=== PATIENT | female | born 1945 | race Caucasian/White ===

== ENCOUNTER 2020-08-26 08:31 | Day surgery (SDC) | payer MEDICARE, MEDICAID, SELFPAY ==
[2020-08-20 09:42] VITALS: BMI 27.2
--- NOTE | 2020-08-21 12:00 | CONS_ITS ---
DATE OF SERVICE: 08/26/2020 HISTORY OF PRESENT ILLNESS: The patient is a 75-year-old [employer] who was scheduled for cataract surgery by Dr. Dejesus. REVIEW OF SYSTEMS: HEENT: She has had no headaches. No problem with her vision or hearing. No sore throat or sinus trouble. She does have the cataract that is why she is having the surgery. CARDIORESPIRATORY: No chest pain, cough, or shortness of breath. GI: No nausea or vomiting. No diarrhea or constipation. No heartburn. : No dysuria. She has rare nocturia. BONE AND JOINT: She has some scattered arthralgias. ENDOCRINE: No diabetes or thyroid problems. DERMATOLOGIC: No rashes. NEUROLOGIC: No history of syncope or seizures. She has a history of hypertension treated with losartan 25 mg daily, history of depression treated with Celexa 10 mg daily, and history of dyslipidemia treated with simvastatin 20 mg daily, and history of iron-deficiency anemia treated with ferrous sulfate 325 daily. SOCIAL HISTORY: She is a [employer] and has retired. 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 She does not smoke or drink. She drinks 3 cups of coffee a day. Mother at 94. Father at 92. She has 1 sister, alive and well. PHYSICAL EXAMINATION: VITAL SIGNS: Her blood pressure was 132/68. HEENT: Her pupils were equal and reactive. Throat was normal. Ears, normal. NECK: Supple without nodes. LUNGS: Clear. HEART: Regular. No murmurs. BREASTS: Without masses in March, not examined this time. ABDOMEN: Soft and nontender. Bowel sounds are active. EXTREMITIES: Without cyanosis or edema. SKIN: Without rash. RECTAL: Done in March showed no masses and stool is negative for blood. NEUROLOGIC: Normal. LABORATORY DATA: Labs are fairly normal except for creatinine of 1.01 and BUN of 13. The only thing is she just needs to avoid NSAIDs. Her labs studies done in the June showed normal electrolytes. BUN 13, creatinine 1.01, and calcium 9.1. White count 8800, hemoglobin 12.2, hematocrit 37.6, and platelets 318,000. Cardiogram done in March was sinus rhythm with minor nonspecific ST-T, cholesterol is 161, and LDL 90 in March. Liver functions were normal. Electrolytes were normal. Urinalysis was normal. The patient is medially cleared for cataract surgery by Dr. Dejesus as scheduled. MD NIR Caicedo/SHANDA / [phone]
--- NOTE | 2020-08-22 11:38 | MHC.SHP ---
Pre-Procedural Eval Section A The patient is an INPATIENT: No The History & Physical has been completed within 30 days and I have reviewed it.: Yes Section B Chief Complaint: Cataract Right Eye Allergies: Allergies Allergy/AdvReac Type Severity Reaction Status Date / Time sulindac [From CLINORIL] Allergy Intermediate Hives Verified 08/20/20 09:39 cephalexin [From KEFLEX] AdvReac Intermediate HIVES Verified 08/20/20 09:39 clindamycin [CLINDAMYCIN] AdvReac Intermediate Hives Verified 08/20/20 09:39 Plan Diagnosis/Plan: Unchanged Patient has been examined and remains a candidate for the planned procedure
--- NOTE | 2020-08-23 14:02 | HO.ANESPROP2 ---
Documented by User: Shira Smyth 08/23/20 14:03 HPI - Anesthesia Eval Consult details Narrative: 75yo F for cataract PCP cleared [facility] Past Medical History Medical History Anxiety Elevated cholesterol HTN (hypertension) HX: breast cancer Surgical History Surgical History Hx of colonoscopy Hx of total hip arthroplasty Hx of total knee arthroplasty Social History Social History Smoking Status: Never smoker Use of substances other than those prescribed or required for medical reasons: No Advance Directives: No Advance Directives Information Provided: No Advance Directives on File: No Meds Allergies Allergy/AdvReac Type Severity Reaction Status Date / Time sulindac [From CLINORIL] Allergy Intermediate Hives Verified 08/20/20 09:39 cephalexin [From KEFLEX] AdvReac Intermediate HIVES Verified 08/20/20 09:39 clindamycin [CLINDAMYCIN] AdvReac Intermediate Hives Verified 08/20/20 09:39 Home Medications Medication Instructions Recorded Confirmed Type citalopram 1 tab PO DAILY 08/20/20 08/20/20 History ferrous sulfate 1 tab PO DAILY 08/20/20 08/20/20 History losartan 1 tab PO DAILY 08/20/20 08/20/20 History multivitamin 1 tab PO DAILY 08/20/20 08/20/20 History simvastatin 1 tab PO DAILY 08/20/20 08/20/20 History Exam Exam Date and Time: August 23, 2020 1402 Height,Weight and Vital Signs: Height 5 ft 6 in Weight 76.657 kg Pertinent Lab Results Pertinent Lab Results: Laboratory Tests 04/01/20 04/01/20 07:34 07:34 Hgb 12.1 Hct 37.7 Plt Count 289 Sodium 139 Potassium 4.2 Chloride 99 BUN 16 Creatinine 1.02 Assessment and Plan Assessment Anesthesia Assessment: Chart Reviewed Documented by User: Radha Wang 08/26/20 09:41 PMF Past Medical History Medical History Anxiety Elevated cholesterol HTN (hypertension) HX: breast cancer Surgical History Surgical History Hx of colonoscopy Hx of total hip arthroplasty Hx of total knee arthroplasty Social History Social History Smoking Status: Never smoker Use of substances other than those prescribed or required for medical reasons: No Advance Directives: No Advance Directives Information Provided: No Advance Directives on File: No Meds Allergies Allergy/AdvReac Type Severity Reaction Status Date / Time sulindac [From CLINORIL] Allergy Intermediate Hives Verified 08/20/20 09:39 cephalexin [From KEFLEX] AdvReac Intermediate HIVES Verified 08/20/20 09:39 clindamycin [CLINDAMYCIN] AdvReac Intermediate Hives Verified 08/20/20 09:39 Home Medications Medication Instructions Recorded Confirmed Type citalopram 1 tab PO DAILY 08/20/20 08/20/20 History ferrous sulfate 1 tab PO DAILY 08/20/20 08/20/20 History losartan 1 tab PO DAILY 08/20/20 08/20/20 History multivitamin 1 tab PO DAILY 08/20/20 08/20/20 History simvastatin 1 tab PO DAILY 08/20/20 08/20/20 History Exam Airway Mallampati Class: II (Caps) TM Dist: >3cm Neck ROM: Full Heart: RRR Lungs: CTA BL Assessment and Plan Final Anesthetic Review NPO: Yes (Sip water with medicine) ASA Class: II Final Preanesthetic Review: No Changes in Pt Med Stat and Anes Risks/Benef Reviewed Patient Risk: Low Procedure Risk: Low Anesthetic Plan Anesthetic Plan: MAC: Disposition: Standard PACU
[2020-08-26] MEDS: Tetracaine HCl/PF 0.5% Oph Sol 4 ML DROPS 1 DROP EYE-RIGHT (09:46)
[2020-08-26] MEDS: Tropicamide 1 % Ophth Sol 3 ML BTL 1 DROP EYE-RIGHT ×2 (09:48→09:53)
[2020-08-26 10:08] VITALS: BP 143/65; PULSE 89; RESP 18; TEMP 36.3; O2SAT 100
--- NOTE | 2020-08-26 10:43 | HO.PNOPHT ---
Ophthalmology Procedure Procedure Ophthalmology Viscoelastic: Tianna Hudsont Dual Pack Pro Ophthalmology Lenses: TECNIS [id number] (20.5) Procedure Notes: PREOPERATIVE DIAGNOSIS: Decreased visual acuity right eye secondary to cataract POSTOPERATIVE DIAGNOSIS: Same PROCEDURE: Right cataract extraction with intraocular lens insertion SURGEON: William Dejesus M.D. ANESTHESIA: Topical/MAC ESTIMATED BLOOD LOSS: None COMPLICATIONS: None After obtaining informed consent, the patient was brought to the operating room suite and placed in the supine position. After adequate sedation per anesthesia, topical drops of Tetracaine were given to the right eye. The eye was then prepped and draped in the usual sterile fashion. The operating room microscope was then positioned over the operative eye and a lid speculum placed. A paracentesis was created. Viscoelastic was then instilled into the anterior chamber. A three plane incision was then created temporally, utilizing a 2.85 mm keratome. Capsulotomy forceps were then utilized to create a circular tear capsulotomy. Hydrodissection and hydrodelineation were carried out until adequate mobilization of the nucleus occurred. Phacoemulsification was then utilized to remove the dense central nucleus followed by removal of the cortical material utilizing the automated aspiration irrigation unit. Viscoelastic was instilled into the posterior capsular bag followed by placement of a posterior chamber intraocular lens without difficulty. The residual Viscoelastic was then removed utilizing the automated IA machine. The wound was checked and found to be watertight. The patient tolerated the procedure well and the lid speculum was removed. Intracameral injection of Vigamox 0.1 mL followed by a subtenon injection of Kenalog-40 0.2 mL were administered. The patient will be seen in the a.m.
[2020-08-26 10:45] VITALS: PULSE 75; TEMP 36.3
[2020-08-26 10:46] VITALS: BP 115/53; PULSE 79; RESP 16; TEMP 36.3; O2SAT 98
== END 2020-08-26 23:59 | disposition home or self-care (01) ==
PROVIDERS: PCP Internal Medicine; Visit Provider Ophthalmology
PROC: (CPT 66985; principal; 2020-08-26 10:50)
DX: H25.11 Age-related nuclear cataract, right eye (principal); H52.4 Presbyopia; Z83.511 Family history of glaucoma; H40.013 Open angle with borderline findings, low risk, bilateral; I10 Essential (primary) hypertension; Z85.3 Personal history of malignant neoplasm of breast; Z79.899 Other long term (current) drug therapy; Z96.641 Presence of right artificial hip joint; Z96.651 Presence of right artificial knee joint; Z88.1 Allergy status to other antibiotic agents
CPT/HCPCS: 66984; J2250; J3010; J3300; V2632

== ENCOUNTER 2020-09-09 07:39 | Day surgery (SDC) | payer MEDICARE, MEDICAID, SELFPAY ==
--- NOTE | 2020-09-04 07:54 | MHC.SHP ---
Pre-Procedural Eval Section A The patient is an INPATIENT: No The History & Physical has been completed within 30 days and I have reviewed it.: Yes Section B Chief Complaint: cataracts left eye Allergies: Allergies Allergy/AdvReac Type Severity Reaction Status Date / Time sulindac [From CLINORIL] Allergy Intermediate Hives Verified 08/20/20 09:39 cephalexin [From KEFLEX] AdvReac Intermediate HIVES Verified 08/20/20 09:39 clindamycin [CLINDAMYCIN] AdvReac Intermediate Hives Verified 08/20/20 09:39 Plan Diagnosis/Plan: Unchanged Patient has been examined and remains a candidate for the planned procedure
[2020-09-04 10:21] VITALS: BMI 27.2
[2020-09-09 08:28] VITALS: BP 136/65; PULSE 81; RESP 16; TEMP 36.8; O2SAT 98
[2020-09-09] MEDS: Lactated Ringers 500 ML 50 ML IV (08:34)
[2020-09-09] MEDS: Tetracaine HCl/PF 0.5% Oph Sol 4 ML DROPS 1 DROP EYE-LEFT (08:35)
[2020-09-09] MEDS: Tropicamide 1 % Ophth Sol 3 ML BTL 1 DROP EYE-LEFT ×3 (08:36→08:44)
--- NOTE | 2020-09-09 08:48 | HO.ANESPROP2 ---
[facility] Past Medical History Medical History Anxiety Elevated cholesterol HTN (hypertension) HX: breast cancer Surgical History Surgical History Hx of colonoscopy Hx of right cataract extraction Hx of total hip arthroplasty Hx of total knee arthroplasty Social History Social History Smoking Status: Never smoker Use of substances other than those prescribed or required for medical reasons: No Advance Directives: No Advance Directives Information Provided: No Advance Directives on File: No Meds Allergies Allergy/AdvReac Type Severity Reaction Status Date / Time sulindac [From CLINORIL] Allergy Intermediate Hives Verified 08/20/20 09:39 cephalexin [From KEFLEX] AdvReac Intermediate HIVES Verified 08/20/20 09:39 clindamycin [CLINDAMYCIN] AdvReac Intermediate Hives Verified 08/20/20 09:39 Home Medications Medication Instructions Recorded Confirmed Type citalopram 1 tab PO DAILY 08/20/20 08/26/20 History ferrous sulfate 1 tab PO DAILY 08/20/20 08/20/20 History losartan 1 tab PO DAILY 08/20/20 08/20/20 History multivitamin 1 tab PO DAILY 08/20/20 08/20/20 History simvastatin 1 tab PO DAILY 08/20/20 08/20/20 History Exam Exam Date and Time: September 09, 2020 0848 Height,Weight and Vital Signs: Height 5 ft 6 in Weight 76.65 kg Last Vital Signs Temp 98.3 F 09/09/20 08:28 Pulse 81 09/09/20 08:28 Resp 16 09/09/20 08:28 BP 136/65 09/09/20 08:28 Pulse Ox 98 09/09/20 08:28 Airway Mallampati Class: II TM Dist: >3cm Neck ROM: Full Loose/Missing/Broken Teeth: No Heart: RRR Lungs: CTA Assessment and Plan Assessment Anesthesia Assessment: Anesthesia Plan Discussed and Chart Reviewed Final Anesthetic Review NPO: Yes ASA Class: II Final Preanesthetic Review: No Changes in Pt Med Stat, Meds/Allgs Chart Reviewed, Consent Obtained/Reviewed and Anes Risks/Benef Reviewed Patient Risk: Low Procedure Risk: Low Anesthetic Plan Anesthetic Plan: MAC: Disposition: Standard PACU
--- NOTE | 2020-09-09 10:16 | HO.PNOPHT ---
Ophthalmology Procedure Procedure Date of Service: 09/09/20 Ophthalmology Viscoelastic: Healon Duet Dual Pack Pro Ophthalmology Lenses: TECNIS [id number] (21.5) Procedure Notes: PREOPERATIVE DIAGNOSIS: Decreased visual acuity left eye secondary to cataract POSTOPERATIVE DIAGNOSIS: Same PROCEDURE: Left cataract extraction with intraocular lens insertion SURGEON: William Dejesus M.D. ANESTHESIA: Topical/MAC ESTIMATED BLOOD LOSS: None COMPLICATIONS: None After obtaining informed consent, the patient was brought to the operation room suite and placed in the supine position. After adequate sedation per anesthesia, topical drops of Tetracaine were given to the left eye. The eye was then prepped and draped in the usual sterile fashion. The operating room microscope was then positioned over the operative eye and a lid speculum placed. A paracentesis was created. Viscoelastic was then instilled into the anterior chamber. A three plane incision was then created temporally, utilizing a 2.85 mm keratome. Capsulotomy forceps were then utilized to create a circular tear capsulotomy. Hydrodissection and hydrodelineation were carried out until adequate mobilization of the nucleus occurred. Phacoemulsification was then utilized to remove the dense central nucleus followed by removal of the cortical material utilizing the automated aspiration irrigation unit. Viscoat elastic was instilled into the posterior capsular bag followed by placement of a posterior chamber intraocular lens without difficulty. The residual Viscoat elastic was then removed utilizing the automated IA machine. The wound was check and found to be watertight. The patient tolerated the procedure well and the lid speculum was removed. Intracameral injection of Vigamox 0.1 mL followed by a subtenon injection of Kenalog-40 0.2 mL were administered. The patient will be seen in the a.m.
[2020-09-09 10:17] VITALS: BP 128/60; PULSE 85; RESP 15; TEMP 36.8; O2SAT 97
== END 2020-09-09 10:30 | disposition home or self-care (01) ==
PROVIDERS: PCP Internal Medicine; Visit Provider Ophthalmology
PROC: (CPT 66985; principal; 2020-09-09 10:00)
DX: H25.12 Age-related nuclear cataract, left eye (principal); Z83.511 Family history of glaucoma; Z96.1 Presence of intraocular lens; I10 Essential (primary) hypertension; Z79.899 Other long term (current) drug therapy; Z85.3 Personal history of malignant neoplasm of breast; Z88.1 Allergy status to other antibiotic agents; Z88.8 Allergy status to other drugs, medicaments and biological substances
CPT/HCPCS: 66984; J2250; J3010; J3300; V2632

== ENCOUNTER 2020-09-26 09:14 | Outpatient (REF) | payer MEDICARE, MEDICAID, SELFPAY ==
[2020-09-26 12:14] LABS: Blood Urea Nitrogen 14 mg/dL (9-16); Estimated Glomerular Filt Rate 60
== END 2020-09-26 09:15 | disposition home or self-care (01) ==
LOC: HO.HMGCLDS 09:14
PROVIDERS: PCP Internal Medicine; Visit Provider Internal Medicine
DX: R53.83 Other fatigue (principal)
CPT/HCPCS: 82565; 84520

== ENCOUNTER 2020-12-25 09:06 | Outpatient (REF) | payer MEDICARE, MEDICAID, SELFPAY ==
[2020-12-25 12:00] LABS: Blood Urea Nitrogen 10 mg/dL (9-16); Estimated Glomerular Filt Rate 56
== END 2020-12-25 09:07 | disposition home or self-care (01) ==
LOC: HO.HMGCLDS 09:06
PROVIDERS: PCP Internal Medicine; Visit Provider Internal Medicine
DX: N18.30 Chronic kidney disease, stage 3 unspecified (principal)
CPT/HCPCS: 36415; 82565; 84520

== ENCOUNTER 2021-04-09 06:01 | Outpatient (REF) | payer MEDICARE, MEDICAID, SELFPAY ==
[2021-04-09 11:23] LABS: MANUAL DIFF FLAG NO
[2021-04-09 11:32] LABS: Basophils Absolute Auto 0.1 X10*3/uL (0.0-0.2); Basophils Percent Auto 0.8 % (0-2); Eosinophils Absolute Auto 0.2 X10*3/uL (0.0-0.4); Eosinophils Percent Auto 3.1 % (0-4); Hematocrit 38.2 % (37-47); Hemoglobin 12.2 g/dl (12.0-16.0); Imm Gran Abs Auto 0.03 X10*3/uL (0.00-0.03); Imm Gran Pct Auto 0.5 % (0.0-0.4); Lymphocytes Absolute Auto 1.8 X10*3/uL (1.2-4.9); Lymphocytes Percent Auto 30.3 % (20-40); Mean Corpuscular HGB Conc 31.9 g/dl (31.0-35.0); Mean Corpuscular Hemoglobin 29.3 pg (27.0-33.0); Mean Corpuscular Volume 91.6 fL (80-98); Mean Platelet Volume 9.2 fL (9.4-12.3); Monocytes Absolute Auto 0.6 X10*3/uL (0.1-1.2); Monocytes Percent Auto 9.9 % (2-11); Neutrophils Absolute Auto 3.4 X10*3/uL (2.0-8.3); Neutrophils Percent Auto 55.4 % (45-73); Platelet Count 312 X10*3/uL (160-400); Red Blood Count 4.17 X10*6/uL (4.20-5.50); Red Cell Distribution Width 12.6 % (11.0-16.0); White Blood Count 6.1 X10*3/uL (4.8-10.8)
[2021-04-09 11:49] LABS: Alanine Aminotransferase 12 U/L (0-31); Alkaline Phosphatase 70 U/L (39-117); Anion Gap 13 (12-20); Aspartate Amino Transferase 21 U/L (5-31); Bilirubin Total 0.6 mg/dL (0.0-1.0); Blood Urea Nitrogen 13 mg/dL (9-16); Calcium 9.1 mg/dL (8.4-10.2); Carbon Dioxide 28 mmol/L (22-29); Chloride 101 mmol/L (96-108); Cholesterol 164 mg/dL; Estimated Glomerular Filt Rate 59; Glucose Fasting 85 mg/dL (60-99); HDL Cholesterol 62 mg/dL; Iron 88 mcg/dL (30-160); LDL Cholesterol Calculated 91 mg/dl; Percent Iron Saturation 40 % (15-50); Potassium 4.4 mmol/L (3.3-5.1); Sodium 138 mmol/L (135-145); Total Iron Binding Capacity 222 mcg/dL (228-428); Total Protein 6.7 g/dL (6.5-8.0); Triglycerides 56 mg/dL; Unsaturated Iron Binding 134 ug/dL
[2021-04-09 12:14] LABS: Ferritin 376 ng/mL (10-250); Free T4 (Free Thyroxine) 0.99 ng/dL (0.71-1.85); Thyroid Stimulating Hormone 2.16 uIU/mL (0.32-4.0)
== END 2021-04-09 06:02 | disposition home or self-care (01) ==
LOC: HO.HMGCLDS 06:01
PROVIDERS: PCP Internal Medicine; Visit Provider Internal Medicine
DX: D64.9 Anemia, unspecified (principal); E78.5 Hyperlipidemia, unspecified; R53.83 Other fatigue
CPT/HCPCS: 36415; 80053; 80061; 82728; 83540; 84439; 84443; 85025

== ENCOUNTER 2021-05-14 08:15 | Outpatient (REF) | payer MEDICARE, MEDICAID, SELFPAY ==
--- NOTE | ~2021-05-14 | MM_ITS ---
EXAMINATION: MM SCREENING DIGITAL BREAST TOMOSYNTHESIS, BILATERAL CLINICAL INFORMATION: Screening. Asymptomatic. Right lumpectomy for breast cancer, 2014. Due for yearly. COMPARISON: Mammography: 05/09/2020, 01/03/2019, 12/27/2017 TECHNIQUE: Digital breast tomosynthesis is performed in both the craniocaudal and mediolateral oblique views along with computer-aided detection (CAD). Synthesized 2D images are generated from the tomosynthesis. FINDINGS: There are scattered areas of fibroglandular density (ACR BI-RADS breast composition Category b). There are no significant masses, abnormal calcifications, or other abnormalities. Right breast post therapy changes are again seen with mild reduced breast size and stable scarring. There are some ductal secretory calcifications again noted, greater on left. The axilla and skin contours are unremarkable. MM/MM tomosynthesis screening BI IMPRESSION: No mammographic evidence of malignancy. Post therapy changes right breast. ASSESSMENT: BI-RADS 2: Benign RECOMMENDATION: Routine annual mammography screening. This patient's information was entered into a reminder system with a target due date for their next mammogram.
== END 2021-05-14 08:16 | disposition home or self-care (01) ==
LOC: HO.MAMMO 08:15
PROVIDERS: Visit Provider Internal Medicine
DX: Z12.31 Encounter for screening mammogram for malignant neoplasm of breast (principal)
CPT/HCPCS: 77063; 77067

== ENCOUNTER 2021-06-06 14:14 | Outpatient (REF) | payer MEDICARE, MEDICAID, SELFPAY ==
--- NOTE | ~2021-06-06 | MM_ITS ---
EXAMINATION: BONE DENSITOMETRY CLINICAL INDICATION: Postmenopausal. COMPARISON: Previous BD dated 03/15/2018 and baseline BD dated 03/08/2014. TECHNIQUE: Using a [employer] DXA System (software version: 13.1) manufactured by [employer], dual-energy x-ray absorptiometry was performed of the lumbar spine and left hip. The images are of good technical quality. Summary results are attached. FINDINGS: AP SPINE L1-L4: Current: BMD 1.221 g/cm2, Z-score 1.8, T-score 0.3, normal, 3.7% decrease from previous, 1.2% increase from baseline (<5% change is not significant). Prior: BMD 1.268 g/cm2. Baseline: BMD 1.206 g/cm2. LEFT FEMUR, NECK: Current: BMD 0.767 g/cm2, Z-score -0.1, T-score -2.0, osteopenia. Prior: BMD 0.882 g/cm2. Baseline: BMD 0.894 g/cm2. LEFT FEMUR, TOTAL: Current: BMD 0.840 g/cm2, Z-score 0.3, T-score -1.3, osteopenia, 6.3% decrease from previous, 8.8% decrease from baseline (<5% change is not significant). Prior: BMD 0.896 g/cm2. Baseline: BMD 0.921 g/cm2. IDENTIFIED RISK FACTORS: Menopause. HISTORY OF FRACTURE: None listed. MEDICATIONS: Multivitamin. MM/XR DEXA axial skeleton IMPRESSION: 1. DIAGNOSIS: Osteopenia based on the lowest T-score value of -2.0 in the femoral neck applying World Health Organization criteria. 2. 10-YEAR FRACTURE RISK PREDICTION, FRAX: Major osteoporotic fracture (clinical spine, forearm, hip or shoulder) 14.5%. Hip fracture 4.0%. 3. Treatment Recommendations: NOF guidelines recommend consideration for treatment in postmenopausal women and men age 50 and older presenting with the following: -A hip or vertebral (clinical or morphometric) fracture. -T-score less than or equal to -2.5 at the femoral neck or spine after appropriate evaluation to exclude secondary causes. -Low bone mass at the hip or spine and a 10-year fracture probability by FRAX of greater than or equal to 3% for hip fracture or greater than or equal to 20% for major osteoporotic fracture based on the [place] adapted WHO algorithm. 4. Other Recommendations: All treatment decisions require clinical judgment and consideration of individual patient factors, including patient preferences, comorbidities, previous drug use, risk factors not captured in the FRAX model (e.g. frailty, falls, vitamin D deficiency, increased bone turnover, interval significant decline in bone density) and possible under or overestimation of fracture risk by FRAX. Additional medical evaluation for secondary cause of low bone mineral density may be appropriate. FUTURE SCAN RECOMMENDATION: People with diagnosed cases of osteoporosis or at high risk for fracture should have regular bone mineral density tests. For patients eligible for Medicare, routine testing is allowed once every 2 years. The testing frequency can be increased to one year for patients who have rapidly progressing disease, those who are receiving or discontinuing medical therapy to restore bone mass, or have additional risk factors.
== END 2021-06-06 14:15 | disposition home or self-care (01) ==
LOC: HO.MAMMO 14:14
PROVIDERS: PCP Internal Medicine; Visit Provider Internal Medicine
DX: Z78.0 Asymptomatic menopausal state (principal)
CPT/HCPCS: 77080

== ENCOUNTER 2021-10-14 08:18 | Outpatient (REF) | payer MEDICARE, MEDICAID, SELFPAY ==
[2021-10-14 12:04] LABS: Blood Urea Nitrogen 14 mg/dL (9-16); Estimated Glomerular Filt Rate 58
== END 2021-10-14 08:19 | disposition home or self-care (01) ==
LOC: HO.HMGCLDS 08:18
PROVIDERS: PCP Internal Medicine; Visit Provider Internal Medicine
DX: R53.83 Other fatigue (principal)
CPT/HCPCS: 36415; 82565; 84520

== ENCOUNTER → 2022-01-13 08:01 | Outpatient (BNV) | payer MEDICARE, MEDICAID, SELFPAY | PROVIDERS: PCP Internal Medicine; Visit Provider Internal Medicine Medical Oncology | DX: Z85.3 Personal history of malignant neoplasm of breast (principal); M85.80 Other specified disorders of bone density and structure, unspecified site | CPT/HCPCS: 99212; 99213 ==

== ENCOUNTER 2022-03-31 07:55 | Outpatient (REF) | payer MEDICARE, MEDICAID, SELFPAY ==
[2022-03-31 11:35] LABS: MANUAL DIFF FLAG NO
[2022-03-31 11:39] LABS: Basophils Absolute Auto 0.1 X10*3/uL (0.0-0.2); Eosinophils Absolute Auto 0.2 X10*3/uL (0.0-0.4); Eosinophils Percent Auto 2.6 % (0-4); Hematocrit 34.7 % (37.0-47.0); Hemoglobin 11.5 g/dl (12.0-16.0); Imm Gran Abs Auto 0.02 X10*3/uL (0.00-0.03); Imm Gran Pct Auto 0.3 % (0.0-0.4); Lymphocytes Absolute Auto 1.8 X10*3/uL (1.2-4.9); Lymphocytes Percent Auto 29.7 % (20-40); Mean Corpuscular HGB Conc 33.1 g/dl (31.0-35.0); Mean Corpuscular Hemoglobin 29.9 pg (27.0-33.0); Mean Corpuscular Volume 90.4 fL (80.0-98.0); Mean Platelet Volume 9.4 fL (9.4-12.3); Monocytes Absolute Auto 0.6 X10*3/uL (0.1-1.2); Monocytes Percent Auto 10.1 % (2-11); Neutrophils Absolute Auto 3.4 x10*3/uL (2.0-8.3); Neutrophils Percent Auto 56.3 % (45-73); Platelet Count 296 X10*3/uL (160-400); Red Blood Count 3.84 X10*6/uL (4.20-5.50); Red Cell Distribution Width 12.7 % (11.0-16.0); White Blood Count 6.1 X10*3/uL (4.8-10.8)
[2022-03-31 11:57] LABS: Alanine Aminotransferase 10 U/L (0-31); Albumin Level 3.8 g/dL (3.5-5.0); Alkaline Phosphatase 67 U/L (39-117); Anion Gap 13 (12-20); Aspartate Amino Transferase 15 U/L (5-31); Bilirubin Direct 0.2 mg/dL (0.0-0.5); Bilirubin Total 0.5 mg/dL (0.0-1.0); Blood Urea Nitrogen 11 mg/dL (9-16); Carbon Dioxide 25 mmol/L (22-29); Chloride 101 mmol/L (96-108); Cholesterol 150 mg/dL; Estimated Glomerular Filt Rate > 60; Glucose Fasting 83 mg/dL (60-99); HDL Cholesterol 54 mg/dL; Iron 72 mcg/dL (30-160); LDL Cholesterol Calculated 83 mg/dl; Percent Iron Saturation 33 % (15-50); Potassium 4.2 mmol/L (3.3-5.1); Sodium 135 mmol/L (135-145); Total Iron Binding Capacity 221 mcg/dL (228-428); Total Protein 6.7 g/dL (6.5-8.0); Triglycerides 66 mg/dL; Unsaturated Iron Binding 149 ug/dL
[2022-03-31 12:20] LABS: Ferritin 351 ng/mL (10-250)
== END 2022-03-31 07:56 | disposition home or self-care (01) ==
LOC: HO.HMGCLDS 07:55
PROVIDERS: PCP Internal Medicine; Visit Provider Internal Medicine
DX: R53.83 Other fatigue (principal); D64.9 Anemia, unspecified; E78.00 Pure hypercholesterolemia, unspecified
CPT/HCPCS: 36415; 80051; 80061; 80076; 82565; 82728; 82947; 83540; 84520; 85025

== ENCOUNTER 2022-05-18 09:29 | Outpatient (REF) | payer MEDICARE, MEDICAID, SELFPAY ==
--- NOTE | ~2022-05-18 | MM_ITS ---
EXAMINATION: MM SCREENING DIGITAL BREAST TOMOSYNTHESIS, BILATERAL CLINICAL INFORMATION: Screening. Asymptomatic. The lifetime risk of breast cancer based on the Tyrer-Cuzick Model is 4%. COMPARISON: Mammography: 05/14/2021, 05/09/2020, 01/03/2019, 12/27/2017 TECHNIQUE: Digital breast tomosynthesis is performed in both the craniocaudal and mediolateral oblique views along with computer-aided detection (CAD). Synthesized 2D images are generated from the tomosynthesis. Additional exaggerated right CC view is provided. FINDINGS: There are scattered areas of fibroglandular density (ACR BI-RADS breast composition Category b). There are no significant masses, abnormal calcifications, or other abnormalities. Parenchymal pattern is similar to prior exams. There are scattered ductal secretory calcifications again seen, greater on left. There are some incidental low left axillary tail nodes previously beyond field of view. The skin contours are smooth. MM/MM tomosynthesis screening BI IMPRESSION: No mammographic evidence of malignancy. ASSESSMENT: BI-RADS 2: Benign RECOMMENDATION: Routine annual mammography screening. This patient's information was entered into a reminder system with a target due date for their next mammogram.
== END 2022-05-18 09:30 | disposition home or self-care (01) ==
LOC: HO.MAMMO 09:29
PROVIDERS: PCP Internal Medicine; Visit Provider Internal Medicine Medical Oncology
DX: Z12.31 Encounter for screening mammogram for malignant neoplasm of breast (principal)
CPT/HCPCS: 77063; 77067

== ENCOUNTER 2022-07-01 09:10 | Outpatient (REF) | payer MEDICARE, MEDICAID, SELFPAY ==
[2022-07-01 11:13] LABS: MANUAL DIFF FLAG NO
[2022-07-01 11:30] LABS: Basophils Absolute Auto 0.1 X10*3/uL (0.0-0.2); Basophils Percent Auto 0.9 % (0-2); Eosinophils Absolute Auto 0.1 X10*3/uL (0.0-0.4); Eosinophils Percent Auto 1.8 % (0-4); Hematocrit 35.7 % (37.0-47.0); Hemoglobin 11.9 g/dl (12.0-16.0); Imm Gran Abs Auto 0.02 X10*3/uL (0.00-0.03); Imm Gran Pct Auto 0.4 % (0.0-0.4); Lymphocytes Absolute Auto 1.6 X10*3/uL (1.2-4.9); Lymphocytes Percent Auto 28.5 % (20-40); Mean Corpuscular HGB Conc 33.3 g/dl (31.0-35.0); Mean Corpuscular Hemoglobin 30.1 pg (27.0-33.0); Mean Corpuscular Volume 90.2 fL (80.0-98.0); Mean Platelet Volume 9.6 fL (9.4-12.3); Monocytes Absolute Auto 0.7 X10*3/uL (0.1-1.2); Monocytes Percent Auto 12.6 % (2-11); Neutrophils Absolute Auto 3.1 x10*3/uL (2.0-8.3); Neutrophils Percent Auto 55.8 % (45-73); Platelet Count 283 X10*3/uL (160-400); Red Blood Count 3.96 X10*6/uL (4.20-5.50); Red Cell Distribution Width 13.1 % (11.0-16.0); White Blood Count 5.5 X10*3/uL (4.8-10.8)
[2022-07-01 12:19] LABS: Anion Gap 15 (12-20); Blood Urea Nitrogen 14 mg/dL (9-16); Calcium 8.9 mg/dL (8.4-10.2); Carbon Dioxide 26 mmol/L (22-29); Chloride 99 mmol/L (96-108); Estimated Glomerular Filt Rate 54; Glucose Fasting 95 mg/dL (60-99); Potassium 4.2 mmol/L (3.3-5.1); Sodium 136 mmol/L (135-145)
== END 2022-07-01 09:11 | disposition home or self-care (01) ==
LOC: HO.HMGCLDS 09:10
PROVIDERS: PCP Internal Medicine; Visit Provider Internal Medicine
DX: D64.9 Anemia, unspecified (principal); R53.83 Other fatigue
CPT/HCPCS: 36415; 80048; 85025

== ENCOUNTER 2022-10-06 07:54 | Outpatient (REF) | payer MEDICARE, MEDICAID, SELFPAY ==
[2022-10-06 11:45] LABS: MANUAL DIFF FLAG NO
[2022-10-06 12:20] LABS: Basophils Absolute Auto 0.1 X10*3/uL (0.0-0.2); Basophils Percent Auto 1.1 % (0-2); Eosinophils Absolute Auto 0.2 X10*3/uL (0.0-0.4); Eosinophils Percent Auto 3.4 % (0-4); Hematocrit 37.6 % (37.0-47.0); Hemoglobin 12.2 g/dl (12.0-16.0); Imm Gran Abs Auto 0.01 X10*3/uL (0.00-0.03); Imm Gran Pct Auto 0.2 % (0.0-0.4); Lymphocytes Absolute Auto 1.9 X10*3/uL (1.2-4.9); Lymphocytes Percent Auto 30.9 % (20-40); Mean Corpuscular HGB Conc 32.4 g/dl (31.0-35.0); Mean Corpuscular Hemoglobin 29.7 pg (27.0-33.0); Mean Corpuscular Volume 91.5 fL (80.0-98.0); Mean Platelet Volume 9.1 fL (9.4-12.3); Monocytes Absolute Auto 0.6 X10*3/uL (0.1-1.2); Monocytes Percent Auto 9.3 % (2-11); Neutrophils Absolute Auto 3.4 x10*3/uL (2.0-8.3); Neutrophils Percent Auto 55.1 % (45-73); Platelet Count 290 X10*3/uL (160-400); Red Blood Count 4.11 X10*6/uL (4.20-5.50); White Blood Count 6.1 X10*3/uL (4.8-10.8)
[2022-10-06 12:26] LABS: Anion Gap 13 (12-20); Blood Urea Nitrogen 14 mg/dL (9-16); Calcium 9.8 mg/dL (8.4-10.2); Carbon Dioxide 30 mmol/L (22-29); Chloride 98 mmol/L (96-108); Estimated Glomerular Filt Rate > 60; Glucose Fasting 72 mg/dL (60-99); Potassium 4.1 mmol/L (3.3-5.1); Sodium 137 mmol/L (135-145)
== END 2022-10-06 07:55 | disposition home or self-care (01) ==
LOC: HO.HMGCLDS 07:54
PROVIDERS: PCP Internal Medicine; Visit Provider Internal Medicine
DX: R53.83 Other fatigue (principal)
CPT/HCPCS: 36415; 80048; 85025

== ENCOUNTER 2022-12-24 08:46 | Outpatient (REF) | payer MEDICARE, MEDICAID, SELFPAY ==
--- NOTE | ~2022-12-24 | XR_ITS ---
EXAMINATION: XR LUMBOSACRAL SPINE CLINICAL INFORMATION: Right low back pain after lifting. COMPARISON: None TECHNIQUE: Four views of the lumbosacral spine. FINDINGS: There is normal lumbar lordosis. The vertebral heights and alignment are normal. There is loss of disc height virtually at all lumbar disc levels with sparing of the L5-S1 disc level . No acute fracture, dislocation or lytic process seen. The paravertebral soft tissues are normal. XR/XR lumbar spine 2-3V IMPRESSION: Degenerative disc changes virtually at all lumbar disc levels with sparing the L5-S1 disc level. No visible acute fracture or dislocation seen.
== END 2022-12-24 08:47 | disposition home or self-care (01) ==
LOC: HO.XRAY 08:46
PROVIDERS: PCP Internal Medicine; Visit Provider Internal Medicine
DX: M54.50 Low back pain, unspecified (principal)
CPT/HCPCS: 72100

== ENCOUNTER 2022-12-24 08:49 | Outpatient (REF) | payer MEDICARE, MEDICAID, SELFPAY | END 2022-12-24 08:50 | disposition home or self-care (01) | LOC: HO.MAMMO 08:49 | PROVIDERS: Visit Provider Internal Medicine | DX: Z13.89 Encounter for screening for other disorder (principal) ==

== ENCOUNTER → 2023-01-01 07:44 | Outpatient (REF) | payer MEDICARE, MEDICAID, SELFPAY ==
--- NOTE | 2023-01-01 07:47 | CA_ITS ---
Transthoracic Echocardiogram Patient (Last, First, Middle): Lyric Mirza M Gender: Female Date of : 1945 Age: 77 Procedure Date: 01/01/2023 Procedure Type: Transthoracic Echocardiogram Location: OP Height: 167.64 cm Weight: 76.66 kg BSA: 1.86 m2 Heart Rate: 86 bpm Straight Cutter: SB Referring MD: Carlos Maravilla MD Symptoms: [place]UR[place] Study Quality: Adequate ECG Rhythm: Sinus Conclusions: - The left ventricular systolic function is normal. The calculated ejection fraction is 64% by biplane method. - There is mild calcification of the aortic valve. - There is mild tricuspid valve regurgitation. Findings Left Ventricle Normal left ventricular cavity size. There is normal left ventricular wall thickness. The left ventricular systolic function is normal. The calculated ejection fraction is 64% by biplane method. There is no evidence of regional wall motion abnormalities. Diastolic function is normal for age. LV peak GLS -14.9%. Right Ventricle Normal right ventricular cavity size and systolic function. Atria Both atria are normal in size. Aortic Valve There is a normal trileaflet aortic valve. There is mild calcification of the aortic valve. There is no aortic valve stenosis. There is no aortic valve regurgitation. Mitral Valve There is mild anterior mitral leaflet thickening. There is trace mitral valve regurgitation. There is no mitral valve stenosis. Pulmonic Valve The pulmonic valve is likely normal. Tricuspid Valve Normal tricuspid valve structure. There is mild tricuspid valve regurgitation. There is no evidence of pulmonary hypertension. Great Vessels The asc aorta is normal in size. Venous The inferior vena cava is mildly dilated and collapses less than 50% with inspiration. Pericardium/Pleural There is no evidence of pericardial effusion. Prior Study Comparison No prior study available for comparison. Measurements 2D Linear Measurements IVSd: 0.90 0.6-0.9/0.6-1.0 cm LVIDd: 4.13 3.9-5.3/4.2-5.9 cm LVIDd Index: 2.22 2.4-3.2/2.2-3.1 cm/m2 LVIDs: 2.55 2.0-3.6 cm LVPWd: 1.00 0.7-1.1 cm LA Diam: 2.80 2.7-3.8/3.0-4.0 cm LAIDs Index: 1.51 1.5-2.3 cm/m2 LV Mass: 154.31 67-162/88-224 g LV Mass Index: 82.96 43-95/49-115 g/m2 LVOT Diam: 2.00 3.0+(-)1.3 cm 2D Systolic Function EF 4C: 61.60 >55% EF 2C: 67.40 >55% EF BiP: 64.10 >55% Mitral Valve MV Pk E: 0.81 MV PK A: 0.99 MV Decel Time: 180.00 E/A: 0.80 E'Lateral: 7.18 E'Medial: 6.64 E/E' Med: 12.30 E/E' Lat: 11.30 PHT: 53.00 MVA PHT: 4.15 Decel Granite: 4.53 Aortic Valve AoV Pk Slade: 1.34 AoV Pk Grad: 7.00 KISHAN: 2.25 LVOT LVOT Pk Slade: 0.96 LVOT Mn Slade: 0.70 LVOT VTI: 0.21 LVOT Pk Grad: 4.00 LVOT Mn Grad: 2.00 LVOT Diam: 2.00 LVOT Area: 3.14 Diastolic Function MV Pk E: 0.81 MV Pk A: 0.99 E/A: 0.80 E'Medial: 6.64 E/E' Med: 12.30 E' Laterial: 7.18 E/E' Lat: 11.30 Right Ventricle TAPSE (mm): 17.10 TVS' Slade: 10.80 Tricuspid Valve TR Pk Slade: 2.17 TR Pk Grad: 19.00 RA Press: 15.00 RVSP: 35.00 Great Vessels Aorta Sinus of Valsalva: 2.70 2.0-3.5 cm Ao Asc: 3.10 2.1-3.4 cm Pulmonary Valve PV Pk Slade: 1.22 Peak PV Grad: 6.00 Updated in Other Vendor System with Status of Final Simon Valencia MD electronically signed on 01/03/2023 11:46:51 AM with status of Final
== END ==
LOC: HO.CARD 07:44
PROVIDERS: PCP Internal Medicine; Visit Provider Internal Medicine
DX: R01.1 Cardiac murmur, unspecified (principal)
CPT/HCPCS: 93306; 93356

== ENCOUNTER 2023-04-16 07:49 | Outpatient (REF) | payer MEDICARE, MEDICAID, SELFPAY ==
[2023-04-16 11:20] LABS: MANUAL DIFF FLAG NO
[2023-04-16 11:37] LABS: Basophils Absolute Auto 0.1 X10*3/uL (0.0-0.2); Basophils Percent Auto 0.9 % (0-2); Eosinophils Absolute Auto 0.2 X10*3/uL (0.0-0.4); Eosinophils Percent Auto 3.6 % (0-4); Hematocrit 35.6 % (37.0-47.0); Hemoglobin 11.6 g/dl (12.0-16.0); Imm Gran Abs Auto 0.01 X10*3/uL (0.00-0.03); Imm Gran Pct Auto 0.2 % (0.0-0.4); Lymphocytes Absolute Auto 1.8 X10*3/uL (1.2-4.9); Lymphocytes Percent Auto 31.2 % (20-40); Mean Corpuscular HGB Conc 32.6 g/dl (31.0-35.0); Mean Corpuscular Hemoglobin 30.2 pg (27.0-33.0); Mean Corpuscular Volume 92.7 fL (80.0-98.0); Mean Platelet Volume 9.7 fL (9.4-12.3); Monocytes Absolute Auto 0.7 X10*3/uL (0.1-1.2); Monocytes Percent Auto 11.6 % (2-11); Neutrophils Percent Auto 52.5 % (45-73); Platelet Count 268 X10*3/uL (160-400); Red Blood Count 3.84 X10*6/uL (4.20-5.50); Red Cell Distribution Width 13.5 % (11.0-16.0); White Blood Count 5.6 X10*3/uL (4.8-10.8)
[2023-04-16 12:04] LABS: Estimated Average Glucose 108 mg/dL; Hemoglobin A1c % 5.4 %
[2023-04-16 12:51] LABS: Alanine Aminotransferase 8 U/L (0-31); Albumin Level 3.9 g/dL (3.5-5.0); Alkaline Phosphatase 59 U/L (39-117); Anion Gap 10 (12-20); Aspartate Amino Transferase 19 U/L (5-31); Bilirubin Total 0.7 mg/dL (0.0-1.0); Blood Urea Nitrogen 13 mg/dL (9-16); Calcium 9.5 mg/dL (8.4-10.2); Carbon Dioxide 29 mmol/L (22-29); Chloride 100 mmol/L (96-108); Cholesterol 153 mg/dL; Estimated Glomerular Filt Rate > 60; Glucose Fasting 77 mg/dL (60-99); HDL Cholesterol 59 mg/dL; LDL Cholesterol Calculated 86 mg/dl; Potassium 4.3 mmol/L (3.3-5.1); Sodium 135 mmol/L (135-145); Total Protein 7.1 g/dL (6.5-8.0); Triglycerides 42 mg/dL
== END 2023-04-16 07:50 | disposition home or self-care (01) ==
LOC: HO.HMGCLDS 07:49
PROVIDERS: PCP Internal Medicine; Visit Provider Internal Medicine
DX: E11.9 Type 2 diabetes mellitus without complications (principal); R53.83 Other fatigue; E78.5 Hyperlipidemia, unspecified
CPT/HCPCS: 36415; 80053; 80061; 83036; 85025

== ENCOUNTER → 2023-05-20 09:30 | Outpatient (BNV) | payer MEDICARE, MEDICAID, SELFPAY | PROVIDERS: Visit Provider Radiology Diagnostic Radiology | DX: Z12.31 Encounter for screening mammogram for malignant neoplasm of breast (principal) | CPT/HCPCS: 77063; 77067 ==

== ENCOUNTER 2023-05-20 09:36 | Outpatient (REF) | payer MEDICARE, MEDICAID, SELFPAY ==
--- NOTE | ~2023-05-20 | MM_ITS ---
EXAMINATION: MM SCREENING DIGITAL BREAST TOMOSYNTHESIS, BILATERAL CLINICAL INFORMATION: Screening. Asymptomatic. Lumpectomy for right breast CA 2013. COMPARISON: Mammography: 05/18/2022, 05/14/2021, 05/09/2020, and dating back to 2017. TECHNIQUE: Digital breast tomosynthesis is performed in both the craniocaudal and mediolateral oblique views along with computer-aided detection (CAD). Synthesized 2D images are generated from the tomosynthesis. FINDINGS: There are scattered areas of fibroglandular density (ACR BI-RADS breast composition Category b). There are stable post treatment related changes in the right breast. There are no suspicious masses, suspicious grouped calcifications, or areas of architectural distortion. The parenchymal pattern is stable from prior exams. There are bilateral benign secretory type calcifications. MM/MM tomosynthesis screening BI IMPRESSION: No mammographic evidence of malignancy. Stable benign findings. ASSESSMENT: BI-RADS BI-RADS 2 - Benign Findings RECOMMENDATION: Routine annual mammography screening. 1 year F/U This examination should not preclude the clinical evaluation of a suspicious palpable abnormality. This patient's information was entered into a reminder system with a target due date for their next mammogram.
== END 2023-05-20 09:37 | disposition home or self-care (01) ==
LOC: HO.MAMMO 09:36
PROVIDERS: Visit Provider Internal Medicine
DX: Z12.31 Encounter for screening mammogram for malignant neoplasm of breast (principal)
CPT/HCPCS: 77063; 77067

== ENCOUNTER 2023-07-20 07:30 | Outpatient (REF) | payer MEDICARE, MEDICAID, SELFPAY ==
[2023-07-20 12:02] LABS: Estimated Average Glucose 120 mg/dL; Hemoglobin A1c % 5.8 % (<6.0)
== END 2023-07-20 07:31 | disposition home or self-care (01) ==
LOC: HO.HMGCLDS 07:30
PROVIDERS: PCP Internal Medicine; Visit Provider Internal Medicine
DX: E11.9 Type 2 diabetes mellitus without complications (principal)
CPT/HCPCS: 36415; 83036

== ENCOUNTER 2023-10-20 09:46 | Outpatient (REF) | payer MEDICARE, MEDICAID, SELFPAY ==
[2023-10-20 13:38] LABS: Estimated Average Glucose 108 mg/dL; Hemoglobin A1c % 5.4 % (<6.0)
== END 2023-10-20 09:47 | disposition home or self-care (01) ==
LOC: HO.HMGCLDS 09:46
PROVIDERS: PCP Internal Medicine; Visit Provider Internal Medicine
DX: E11.9 Type 2 diabetes mellitus without complications (principal)
CPT/HCPCS: 36415; 83036

== ENCOUNTER 2024-02-02 07:51 | Outpatient (REF) | payer MEDICARE, MEDICAID, SELFPAY ==
--- NOTE | ~2024-02-02 | MM_ITS ---
EXAMINATION: BONE DENSITOMETRY CLINICAL INDICATION: Osteopenia. COMPARISON: Previous BD dated 06/06/2021 and baseline BD dated 03/08/2014. TECHNIQUE: Using a Genlot DXA System (software version: 13.1) manufactured by [employer], dual-energy x-ray absorptiometry was performed of the lumbar spine and left hip. The images are of good technical quality. Summary results are attached. FINDINGS: LEFT FEMUR, NECK: Current: BMD 0.794 g/cm2, Z-score 0.2, T-score -1.8, osteopenia. Prior: BMD 0.767 g/cm2. Baseline: BMD 0.894 g/cm2. LEFT FEMUR, TOTAL: Current: BMD 0.870 g/cm2, Z-score 0.7, T-score -1.1, osteopenia, 3.6% increase from previous, 5.5% decrease from baseline (<5% change is not significant). Prior: BMD 0.840 g/cm2. Baseline: BMD 0.921 g/cm2. AP SPINE L1-L4: Current: BMD 1.146 g/cm2, Z-score 1.2, T-score -0.3, normal, 6.1% decrease from previous, 5.0% decrease from baseline (<5% change is not significant). Prior: BMD 1.221 g/cm2. Baseline: BMD 1.206 g/cm2. IDENTIFIED RISK FACTORS: Menopause, height loss. HISTORY OF FRACTURE: None listed. MEDICATIONS: Multivitamin, ERT/SERMS. MM/XR DEXA axial skeleton IMPRESSION: 1. DIAGNOSIS: Osteopenia based on the lowest T-score value of -1.8 in the femoral neck applying World Health Organization criteria. 2. 10-YEAR FRACTURE RISK PREDICTION, FRAX: Not performed in this patient on estrogen or bone building treatments. 3. Treatment Recommendations: NOF guidelines recommend consideration for treatment in postmenopausal women and men age 50 and older presenting with the following: -A hip or vertebral (clinical or morphometric) fracture. -T-score less than or equal to -2.5 at the femoral neck or spine after appropriate evaluation to exclude secondary causes. -Low bone mass at the hip or spine and a 10-year fracture probability by FRAX of greater than or equal to 3% for hip fracture or greater than or equal to 20% for major osteoporotic fracture based on the [place] adapted WHO algorithm. 4. Other Recommendations: All treatment decisions require clinical judgment and consideration of individual patient factors, including patient preferences, comorbidities, previous drug use, risk factors not captured in the FRAX model (e.g. frailty, falls, vitamin D deficiency, increased bone turnover, interval significant decline in bone density) and possible under or overestimation of fracture risk by FRAX. Additional medical evaluation for secondary cause of low bone mineral density may be appropriate. FUTURE SCAN RECOMMENDATION: People with diagnosed cases of osteoporosis or at high risk for fracture should have regular bone mineral density tests. For patients eligible for Medicare, routine testing is allowed once every 2 years. The testing frequency can be increased to one year for patients who have rapidly progressing disease, those who are receiving or discontinuing medical therapy to restore bone mass, or have additional risk factors.
== END 2024-02-02 07:52 | disposition home or self-care (01) ==
LOC: HO.MAMMO 07:51
PROVIDERS: PCP Internal Medicine; Visit Provider Internal Medicine Medical Oncology
DX: Z13.820 Encounter for screening for osteoporosis (principal); Z78.0 Asymptomatic menopausal state; Z85.3 Personal history of malignant neoplasm of breast
CPT/HCPCS: 77080

== ENCOUNTER 2024-02-08 09:53 | Emergency (ER) | payer MEDICARE, MEDICAID, SELFPAY ==
--- NOTE | ~2024-02-08 | XR_ITS ---
EXAMINATION: XR KNEE, RIGHT CLINICAL INFORMATION: Fall. Right knee pain. COMPARISON: Right knee radiographs dated 04/05/2013. TECHNIQUE: Four views of the right knee. FINDINGS: Total right knee arthroplasty in expected anatomic alignment. No hardware fracture or patellar dislocation. No significant perihardware lucency to suggest loosening or infection. No displaced osseous fracture. No concerning lytic or blastic osseous lesion. Logan-nd-madcbduq joint effusion. No abnormal soft tissue calcification. XR/XR knee RT 4V IMPRESSION: 1. Total right knee arthroplasty without evidence of complication. 2. Goger-gi-ufokoeig joint effusion.
[2024-02-08 10:17] VITALS: BP 151/61; PULSE 100; RESP 16; O2SAT 97; BMI 28.0
--- NOTE | 2024-02-08 11:39 | ED_ITS ---
HPI - Fall General Chief Complaint: Fall Stated Complaint: R Knee Pain Fall 02/07/24 Time Seen by Provider: 02/08/24 10:54 Source: patient, RN notes reviewed and old records reviewed Mode of arrival: ambulatory Limitations: no limitations History of Present Illness HPI Narrative: 78 year old female with pmhx significant for hypertension, elevated cholesterol and breast cancer status post right lumpectomy in 2013 presents to the ED today for evaluation of right knee pain s/p trip and fall last night. She admits to tripping over her luggage while at home, falling onto the right knee. She states she was unable to stand up for approximately 30 minutes due to her right knee pain. Denies head strike or LOC. not on anticoagulation. She reports waking up this morning with continued right knee pain. Admits to taking Tylenol at approximately 6:00 a.m. this morning. She is status post right hip and right knee total arthroplasty. He is currently denying right hip pain. Denies fever, chills, headache, dizziness, vision changes, back pain, saddle anesthesia, bowel or bladder incontinence or retention, numbness/tingling/weakness of the right lower extremity. Related Data Home Medications ?Medication ?Instructions ?Recorded ?Confirmed citalopram 10 mg tablet 1 tab PO DAILY 08/20/20 08/03/23 multivitamin 1 tab PO DAILY 08/20/20 08/03/23 simvastatin 20 mg tablet 1 tab PO DAILY 08/20/20 08/03/23 valsartan 80 mg tablet 1 tab PO DAILY 01/13/22 08/03/23 Previous Rx's ?Medication ?Instructions ?Recorded prednisone 50 mg tablet 50 mg PO DAILY 5 days #5 tabs 02/08/24 Allergies Allergy/AdvReac Type Severity Reaction Status Date / Time sulindac [From CLINORIL] Allergy Intermediate Hives Verified 02/08/24 10:21 cephalexin [From KEFLEX] AdvReac Intermediate HIVES Verified 02/08/24 10:21 clindamycin [CLINDAMYCIN] AdvReac Intermediate Hives Verified 02/08/24 10:21 Review of Systems Review of Systems: Constitutional: No fever, chills, fatigue, night sweats, weight changes ENT/Mouth: No ear pain, hearing loss, nasal congestion, sinus pain, rhinorrhea, sore throat Eyes: No eye pain, swelling, redness, vision changes, discharge Cardio: No chest pain, palpitations, HERRERA, orthopnea, peripheral edema Pulm: No SOB, cough, sputum, wheezing, dyspnea, hemoptysis GI: No nausea, vomiting, hematemesis, abdominal pain, diarrhea, constipation, hematochezia, melena : No irregular bleeding, dysuria, frequency, urgency, hesitancy, hematuria, flank pain, urinary flow changes, urinary incontinence or retention MSK: No back pain, neck pain, joint pain, myalgias, +right knee pain Skin: No lesions, rashes Neuro: No weakness, numbness, paresthesias, LOC, dizziness, headache Psych: No anxiety/panic, depression, SI/HI, AH/VH All other systems reviewed and are negative. [facility] Past Medical History Attestation statement: The following information was validated with the patient. Source: old records reviewed and nursing notes reviewed Medical History HX: breast cancer Elevated cholesterol HTN (hypertension) Anxiety Surgical History Hx of right cataract extraction Hx of colonoscopy Hx of total hip arthroplasty Hx of total knee arthroplasty Social History Social History Household Members: None Housing: Apartment Are you a primary family day care provider to a significant other at home: No Do you presently have visiting nurse or other home services: No Patient Tobacco Use Status: Never used Tobacco Advance Directives: No Advance Directives Information Provided: Yes service: No Current occupational status: employed and retired 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 [employer] Physical Exam Vital Signs: Vital Signs: Last Vital Signs Pulse 100 02/08/24 10:17 Resp 16 02/08/24 10:17 BP 151/61 H 02/08/24 10:17 Pulse Ox 97 02/08/24 10:17 O2 Del Method Room Air 02/08/24 10:17 BMI result Body Mass Index 28.0 Patient hypertensive, vitals otherwise WNL Const: General: cooperative, healthy appearing, comfortable and no acute distress Orientation/consciousness: patient oriented x3 Limitations: no limitations HEENT: Head: Yes normal to inspection, Yes No palpable skull fracture present, Yes normocephalic and Yes atraumatic Eyes: General: appearance normal, both eyes and all related structures Conjunctivae: conjunctivae normal Sclerae: sclerae normal Pupils: Equal, round and reactive pupils present Neck: Neck: Yes normal visual inspection, Yes full ROM and Yes no lymphadenopathy Resp: Effort & Inspection: normal respiratory effort Auscultation: clear to auscultation bilaterally Cardio: Rate: regular rate Rhythm: regular rhythm Back/Spine/Pelvis: Other: No midline spinous tenderness or step off deformity. No paraspinal muscle tenderness. Skin: General skin exam: no rashes or lesions noted Neuro: General: patient oriented x3 and gait normal (Slow but steady) Cranial nerves: Yes Equal, round and reactive pupils present Pupils: Normal pupillary reactivity/response: bilateral Extrem: Other: + right knee with healed vertical scar s tatus post arthroplasty. No overlying erythema or edema. No warmth. Nontender to palpation. No palpable deformity. Full ROM intact to flexion and extension with slight discomfort with flexion of the right knee. Sensation intact. Strength intact. 2+ popliteal, DP/PT pulse. Course Course Course Narrative: 1315-- x-ray right knee does not demonstrate change in hardware. No fracture. It does show moderate joint effusion. Physical exam is not consistent with ligament or tendon injury. Will apply Tramaine wrap. Educated on RICE therapy. Reports pain improvement with tylenol. Patient has remained stable throughout ED visit today. Discussed worrisome signs and symptoms and when to return to the ED. All questions answered at this time. Patient is agreeable with disposition and stable for discharge. Medications Administered Discontinued Medications Generic Name Dose Route Start Last Admin Trade Name Freq PRN Reason Stop Dose Admin Acetaminophen 975 mg 02/08/24 11:44 02/08/24 12:02 Acetaminophen 325 Mg Tablet PO 02/08/24 11:45 975 mg ONCE ONE Administration Procedures Orthopedic Splinting/Casting Injury #1: Side: right Lower Extremity Injury Location: knee Lower Extremity Immobilizer: Tramaine wrap Medical Decision Making Medical Decision Making MDM Narrative: 78 year old female with pmhx significant for hypertension, elevated cholesterol and breast cancer status post right lumpectomy in 2013 presents to the ED today for evaluation of right knee pain s/p trip and fall last night. Patient is slightly hypertensive, vitals otherwise WNL. She is nontoxic-appearing and in no acute distress. Ambulating with slow but steady gait. On exam, right knee with healed vertical scar status post arthroplasty. No overlying erythema or edema. No warmth. Nontender to palpation. No palpable deformity. Full ROM intact to flexion and extension with slight discomfort with flexion of the right knee. Sensation intact. Strength intact. 2+ popliteal, DP/PT pulse. Differential diagnosis includes contusion, hardware malfunction, fracture, dislocation. Lower suspicion for gout, pseudogout, Vela cyst, DVT, neurovascular compromise, compartment syndrome, threat to limb. Plan for x-rays, pain control and re-evaluation. Differential Diagnosis Differential Diagnoses: The differential diagnosis associated with the presentation includes As above Admission/Observation Not indicated Independent Interpretation I performed an independent interpretation of an: Plain X-Ray Interpretation: X-ray does not demonstrate fracture, agree with radiologist's interpretation. Radiology Impression Discussion of test interpretation with radiology: I have reviewed the radiologist's reading. Radiologist Impression: EXAMINATION: XR KNEE, RIGHT CLINICAL INFORMATION: Fall. Right knee pain. COMPARISON: Right knee radiographs dated 04/05/2013. TECHNIQUE: Four views of the right knee. FINDINGS: Total right knee arthroplasty in expected anatomic alignment. No hardware fracture or patellar dislocation. No significant perihardware lucency to suggest loosening or infection. No displaced osseous fracture. No concerning lytic or blastic osseous lesion. Mlsju-mt-xlddkwmr joint effusion. No abnormal soft tissue calcification. XR/XR knee RT 4V IMPRESSION: 1. Total right knee arthroplasty without evidence of complication. 2. Pnpvj-hy-orfyabdo joint effusion. External Record Review External record reviewed: Inpatient record, Office record, Outpatient record, Prior outpatient labs, Prior outpatient radiology, Primary care record and Outside ED record Prescription Management I considered prescription management with: Pain Medication and Other (Prednisone) Social Determinants Patient?s care significantly limited by Social Determinants of Health including: Other Social Determinant of Health Critical Care Time Critical Care Time Critical Care Time: No Discharge Plan Discharge Clinical Impression: Effusion of right knee joint Patient Disposition: Home, Self-Care Instructions: Swollen Knee Joint (ED), Swollen Joint (ED) Additional Instructions: Your x-rays today do not show abnormality and hardware or acute fracture. X-rays show an effusion within your right knee joint. Treatment for this is RICE therapy. Rest, ice, compression, elevation. You have been provided with Tramaine wrap to help with compression. Prednisone has been sent to your pharmacy. Take this for the next 5 days beginning today. Continue to alternate Tylenol and ibuprofen as needed for pain/ discomfort. This will also help with inflammation. Follow-up with PCP. Return with new or worsening symptoms. In the case of an emergency call 911. Prescriptions: New prednisone 50 mg tablet 50 mg PO DAILY 5 Days Qty: 5 0RF No Action multivitamin Tablet 1 tab PO DAILY citalopram 10 mg tablet 1 tab PO DAILY simvastatin 20 mg tablet 1 tab PO DAILY valsartan 80 mg tablet 1 tab PO DAILY Referrals: [facility] [place] Family Medicine [Provider Group] [facility] [place] Primary CareJenise [Provider Group] [facility] [place] Primary CareLaura [Provider Group] Print Language: Korean
[2024-02-08] MEDS: Acetaminophen 325 MG TABLET 975 MG PO (12:02)
--- NOTE | 2024-02-08 12:02 | PC.NURSE ---
pt medicated for rt knee pain per order
[2024-02-08 13:27] VITALS: BP 143/62; PULSE 96; RESP 16; TEMP 36.7; O2SAT 97
--- NOTE | 2024-02-08 13:30 | PC.NURSE ---
rt knee yennifer wrapped
== END 2024-02-08 13:30 | disposition home or self-care (01) ==
PROVIDERS: Emergency Provider Emergency Medicine; PCP Internal Medicine
DX: M25.461 Effusion, right knee (principal); I10 Essential (primary) hypertension; Z91.81 History of falling
CPT/HCPCS: 73564; 99283

== ENCOUNTER 2024-04-11 07:51 | Outpatient (REF) | payer MEDICARE, MEDICAID, SELFPAY ==
[2024-04-11 10:15] LABS: MANUAL DIFF FLAG NO
[2024-04-11 10:26] LABS: Eosinophils Absolute Auto 0.1 X10*3/uL (0.0-0.4); Eosinophils Percent Auto 2.5 % (0-4); Hematocrit 35.4 % (37.0-47.0); Hemoglobin 11.7 g/dl (12.0-16.0); Imm Gran Abs Auto 0.01 X10*3/uL (0.00-0.03); Imm Gran Pct Auto 0.2 % (0.0-0.4); Lymphocytes Absolute Auto 1.3 X10*3/uL (1.2-4.9); Lymphocytes Percent Auto 31.1 % (20-40); Mean Corpuscular HGB Conc 33.1 g/dl (31.0-35.0); Mean Corpuscular Hemoglobin 30.3 pg (27.0-33.0); Mean Corpuscular Volume 91.7 fL (80.0-98.0); Mean Platelet Volume 9.3 fL (9.4-12.3); Monocytes Absolute Auto 0.6 X10*3/uL (0.1-1.2); Monocytes Percent Auto 15.9 % (2-11); Neutrophils Percent Auto 49.3 % (45-73); Platelet Count 263 X10*3/uL (160-400); Red Blood Count 3.86 X10*6/uL (4.20-5.50); Red Cell Distribution Width 12.8 % (11.0-16.0)
[2024-04-11 10:51] LABS: Estimated Average Glucose 117 mg/dL; Hemoglobin A1c % 5.7 % (<6.0)
== END 2024-04-11 07:52 | disposition home or self-care (01) ==
LOC: HO.HMGCLDS 07:51
PROVIDERS: PCP Internal Medicine; Visit Provider Internal Medicine
DX: R53.83 Other fatigue (principal); E78.5 Hyperlipidemia, unspecified; E11.9 Type 2 diabetes mellitus without complications
CPT/HCPCS: 36415; 83036; 85025

== ENCOUNTER 2024-04-12 07:05 | Outpatient (REF) | payer MEDICARE, MEDICAID, SELFPAY ==
[2024-04-12 11:46] LABS: Alanine Aminotransferase 12 U/L (0-31); Alkaline Phosphatase 68 U/L (39-117); Anion Gap 10 (12-20); Aspartate Amino Transferase 21 U/L (5-31); Bilirubin Total 0.4 mg/dL (0.0-1.0); Blood Urea Nitrogen 11 mg/dL (9-16); Calcium 9.1 mg/dL (8.4-10.2); Carbon Dioxide 29 mmol/L (22-29); Chloride 102 mmol/L (96-108); Cholesterol 152 mg/dL (<200); Estimated Glomerular Filt Rate 57; Glucose Fasting 89 mg/dL (60-99); HDL Cholesterol 67 mg/dL (>40); LDL Cholesterol Calculated 76 mg/dL (<100); Potassium 4.2 mmol/L (3.3-5.1); Sodium 137 mmol/L (135-145); Triglycerides 47 mg/dL (<150)
== END 2024-04-12 07:06 | disposition home or self-care (01) ==
LOC: HO.HMGCLDS 07:05
PROVIDERS: PCP Internal Medicine; Visit Provider Internal Medicine
DX: R53.83 Other fatigue (principal); E78.5 Hyperlipidemia, unspecified; E11.9 Type 2 diabetes mellitus without complications
CPT/HCPCS: 36415; 80053; 80061

== ENCOUNTER 2024-05-25 09:22 | Outpatient (REF) | payer MEDICARE, MEDICAID, SELFPAY ==
--- NOTE | ~2024-05-25 | MM_ITS ---
EXAMINATION: MM SCREENING DIGITAL BREAST TOMOSYNTHESIS, BILATERAL CLINICAL INFORMATION: Screening. Asymptomatic. COMPARISON: Mammography: This study is compared with prior exams dating back to 2006. TECHNIQUE: Digital breast tomosynthesis is performed in both the craniocaudal and mediolateral oblique views along with computer-aided detection (CAD). Synthesized 2D images are generated from the tomosynthesis. FINDINGS: There are scattered areas of fibroglandular density (ACR BI-RADS breast composition Category b). There are no significant masses, abnormal calcifications, or other abnormalities. Stable postoperative right breast and bilaterally benign calcifications, left greater than right. MM/MM tomosynthesis screening BI IMPRESSION: No mammographic evidence of malignancy. ASSESSMENT: BI-RADS BI-RADS 2 - Benign Findings RECOMMENDATION: Routine annual mammography screening. 1 year F/U This examination should not preclude the clinical evaluation of a suspicious palpable abnormality. This patient's information was entered into a reminder system with a target due date for their next mammogram.
== END 2024-05-25 09:23 | disposition home or self-care (01) ==
LOC: HO.MAMMO 09:22
PROVIDERS: PCP Internal Medicine; Visit Provider Internal Medicine
DX: Z12.31 Encounter for screening mammogram for malignant neoplasm of breast (principal)
CPT/HCPCS: 77063; 77067

== ENCOUNTER 2024-12-19 10:34 | Outpatient (REF) | payer MEDICARE, MEDICAID, SELFPAY ==
--- NOTE | ~2024-12-19 | XR_ITS ---
EXAMINATION: XR KNEE 1-2 VIEWS LEFT HISTORY: Left knee pain. COMPARISON: There are no prior studies available for comparison. FINDINGS: AP and lateral views of the left knee are submitted. Osseous mineralization is normal. There is no fracture or dislocation. There is moderate osteoarthritis of the medial compartment with joint space narrowing and osteophyte formation. Milder changes are noted involving the lateral and patellofemoral compartments. There is a small joint effusion. XR/XR knee LT 2V IMPRESSION: Small joint effusion. Osteoarthritis as described. Electronically signed by: Farooq Crane MD 12/20/2024 07:29 AM SHEILA
--- OUTSIDE RECORDS SUMMARY | 2024-12-19 12:38 | XMS_ITS | Encounter Summary ---
Author Organization [facility] Address [address] [facility] [address] [place] [address] Phone Care Team Providers Care Field Staff Name Role Phone Carlos Maravilla MD Primary Care Provider [phone] Reason for Visit * Reason Comments Med Refill Encounter Details Date Type Department Care Team (Late st Contact Info) Description 12/04/2020 Refill [facility] [address] [facility] [address] [place] [address] Cam Carney MD [address] [facility] [address] [place] [address] Social History Tobacco Use Types Packs/Day Years Used Date Smoking Tobacco: Never Alcohol Use Standard Drinks/Week Comments No 0 (1 standard drink = 0.6 oz pur e alcohol) Comments Unknown Sex and Gender Information Value Date Recorded Sex Assigned at Not on file Legal Sex Female 4:44 PM EST Gender Identity Not on file Sexual Orientation Not on file documented as of this encounter Miscellaneous Notes * Telephone Encounter - Cam Carney MD - 12/18/2020 6:56 AM EST pls call and tell her I renewed med for 1 month but she needs f/u with me before I can renew it anymore documented in this encounter Plan of Treatment Not on file documented as of this encounter Visit Diagnoses Not on filedocumented in this encounter Care Teams Field Staff Relationship Specialty Start Date End Date Carlos Maravilla MD [address] [place] [address] PCP - General 11/04/20 documented as of this encounter
--- OUTSIDE RECORDS SUMMARY | 2024-12-19 12:38 | XMS_ITS | Clinical Summary ---
Author Organization [facility] Address [address] [place] [id number] Care Team Providers Care Yarn Comber Name Role Phone Carlos Maravilla MD Primary Care Provider [phone] Allergies Active Allergy Reactions Criticality Noted Date Comments Cephalexin Hives,Other (see comments) Medium 5 Clindamycin Other (see comments) Medium 04/12/2015 Medications losartan (COZAAR) 25 MG tablet Take 1 tablet (25 mg total) by mouth 1 (one) time each day 30 tablet 12/18/2020 Active citalopram (CeleXA) 10 MG tablet Take 1 tablet by mouth 1 (one) time each day Active ferrous sulfate 325 (65 Fe) MG tablet Take 1 tablet by mouth 1 (one) time each day Active simvastatin (ZOCOR) 20 MG tablet Take 1 tablet by mouth 1 (one) time each day Active tamoxifen (NOLVADEX) 20 MG chemo tablet Take 1 tablet by mouth 1 (one) time each day Active triamterene-hydr oCHLOROthiazide (MAXZIDE) 75-50 MG per tablet Take 1 tablet by mouth 1 (one) time each day Active Active Problems Problem Noted Date Diagnosed Date Chronic kidney disease stage 3 04/07/2021 Hypertensive renal disease 04/07/2021 Immunizations Name Administration Dates Next Due PPD Test 04/18/2015 Family History Medical History Relation Comments Heart disease Father Hypertension Father Hypertension Mother Relation Status Comments Father Mother Social History Tobacco Use Types Packs/Day Years Used Date Smoking Tobacco: Never Alcohol Use Standard Drinks/Week Comments No 0 (1 standard drink = 0.6 oz pur e alcohol) Comments Unknown Sex and Gender Information Value Date Recorded Sex Assigned at Not on file Legal Sex Female 4:44 PM EST Gender Identity Not on file Sexual Orientation Not on file Plan of Treatment Health Maintenance Due Date Last Done Comments Pneumococcal Vaccine: 65+ Ye ars (1 of 2 - PCV) 1951 Influenza Vaccine (#1) 2024 Hepatitis B Vaccine Aged Out No longe r eligible based on patient's age to complete this topic [place] Care Teams Yarn Comber Relationship Specialty Start Date End Date Carlos Maravilla MD [address] [place] [address] PCP - General 11/04/20
--- OUTSIDE RECORDS SUMMARY | 2024-12-19 12:38 | XMS_ITS ---
Author Organization [facility] Address Unknown Allergies, Adverse Reactions, Alerts Substance Reaction Status Noted Date Resolved Date Sulindac Cutaneous reactions active 04/12/2015 Clindamycin active 04/12/2015 Cephalexin Cutaneous reactions active 04/12/2015 Encounters Encounter Performer Performer Role Encounter Diagnoses Location Date Discharge - Discharged to home or self care - Home - Private home/apt. with home health services [facility] 5 03:42 pm EDT - 5 03:22 pm EDT Immunizations Vaccine Date TB 1 Step Mantoux (PPD) 04/18/2015 11:00 am EDT Social History
--- OUTSIDE RECORDS SUMMARY | 2024-12-19 12:38 | XMS_ITS | Encounter Summary ---
Author Organization [facility] Address [address] [place] [address] [place] [address] Phone Care Team Providers Care Storage Garage Manager Name Role Phone Carlos Maravilla MD Primary Care Provider [phone] Reason for Visit * Reason Comments Med Refill Encounter Details Date Type Department Care Team (Late st Contact Info) Description 12/01/2020 Refill [facility] [address] [place] [address] [place] [address] Cam Carney MD [address] [facility] [address] [place] [address] Social History Tobacco Use Types [...] Telephone Encounter - Cam Carney MD - 12/03/2020 1:28 PM EST Not seen for more than a year Needs appt bryon documented in this encounter Plan of Treatment Not on file documented as of this encounter Visit Diagnoses Not on filedocumented in this encounter Care Teams Storage Garage Manager Relationship Specialty Start Date End Date Carlos Maravilla MD [address] [place] [address] PCP - General 11/04/20 documented as of this encounter
== END 2024-12-19 10:35 | disposition home or self-care (01) ==
LOC: HO.HMGCX 10:34
PROVIDERS: PCP Internal Medicine; Visit Provider Internal Medicine
DX: M25.562 Pain in left knee (principal)
CPT/HCPCS: 73560

== ENCOUNTER → 2024-12-19 10:39 | Outpatient (BNV) | payer MEDICARE, MEDICAID, SELFPAY | PROVIDERS: PCP Internal Medicine; Visit Provider Radiology Diagnostic Radiology | DX: M25.462 Effusion, left knee (principal) | CPT/HCPCS: 73560 ==

== ENCOUNTER 2025-04-17 06:20 | Outpatient (REF) | payer MEDICARE, MEDICAID, SELFPAY ==
--- OUTSIDE RECORDS SUMMARY | 2025-04-17 06:24 | XMS_ITS | Patient Health Record ---
Author Organization [facility] Address [address] [place] [address] Care Team Providers Care Machine Operator Helper Name Role Phone Carlos Maravilla MD Primary Care Provider Rudi Rodgers Unavailable [phone] Allergies Allergen (clinical drug ingredient) Drug/Non Drug Allergy documented on EMR Reaction Allergy Type Onset Date Status clindamycin Clindamycin HCl diarrhea Drug Allergy Active Clinoril rash Drug Allergy Active Reason For Referral No Information Medications Medication SIG (Take, Route, Frequency, Duration) Notes Start Date End Date Status Citalopram Hydrobromide 10 MG Orally Active Triamterene-HCTZ 75-50 MG 1 tablet in th e morning Orally Once a day for 30 day(s) Active Simvastatin 20 MG 1 tablet every eveni ng Orally Once a day for 30 day(s) Active Sulindac 150 MG 1 tablet with food Orally Twice a day for 30 day(s) Active Centrum Silver as directed Orally Active NexIUM 40 MG as directed Orally Unknown Cipro 500 MG 1 tablet Orally qd f or 05 days 04/15/2016 Not-Taking Ferrous Sulfate Acti ve Tamoxifen Citrate Ac tive Problems Problem Type SNOMED Code ICD Code Onset Dates Problem Status W/U Status Risk Notes Problem Pain in left foot (826763846025 107) Pain in left foot (M79.672) Active confirmed Plan Of Treatment Pending Test Test Name Order Date [id number] Plate 04/15/2016 Insurance Providers Payer Name Payer Address Payer Phone Subscriber Number Group Number Insured Name Patient Relationship to Insured Coverage Start Date Coverage End Date Medicare [employer] [address] [place] [address] [id number] Lyric Mirza Self - patient is the insured [employer] [address] [place] [address] [id number] Lyric Mirza Self - patient is the insured Medical (General) History Medical History History ICD Code high blood pressure measles mumps chicken pox Transfusions Joint implants/screws Cholesterol Surgical History Surgery Date(Month/Year) total knee replacement right 04/05/2012 gall bladder 2001 ? bunionectomy 30 yrs ago ? Hospitalization History Reason Date(Month/Year) [facility] [place] bone density 02/2016
[2025-04-17 10:06] LABS: MANUAL DIFF FLAG NO
[2025-04-17 10:09] LABS: Basophils Absolute Auto 0.1 X10*3/uL (0.0-0.2); Basophils Percent Auto 1.2 % (0-2); Eosinophils Absolute Auto 0.2 X10*3/uL (0.0-0.4); Eosinophils Percent Auto 3.2 % (0-4); Hematocrit 34.5 % (37.0-47.0); Hemoglobin 11.4 g/dl (12.0-16.0); Imm Gran Abs Auto 0.01 X10*3/uL (0.00-0.03); Imm Gran Pct Auto 0.2 % (0.0-0.4); Lymphocytes Absolute Auto 2.1 X10*3/uL (1.2-4.9); Lymphocytes Percent Auto 34.3 % (20-40); Mean Corpuscular Volume 90.8 fL (80.0-98.0); Monocytes Absolute Auto 0.6 X10*3/uL (0.1-1.2); Monocytes Percent Auto 9.7 % (2-11); Neutrophils Absolute Auto 3.1 x10*3/uL (2.0-8.3); Neutrophils Percent Auto 51.4 % (45-73); Platelet Count 324 X10*3/uL (160-400); Red Cell Distribution Width 13.2 % (11.0-16.0)
[2025-04-17 10:16] LABS: Estimated Average Glucose 120 mg/dL; Hemoglobin A1c % 5.8 % (<6.0)
[2025-04-17 10:40] LABS: Alanine Aminotransferase 10 U/L (0-31); Alkaline Phosphatase 55 U/L (39-117); Anion Gap 11 (12-20); Aspartate Amino Transferase 26 U/L (5-31); Bilirubin Total 0.5 mg/dL (0.0-1.0); Blood Urea Nitrogen 14 mg/dL (9-16); Calcium 9.5 mg/dL (8.4-10.2); Carbon Dioxide 28 mmol/L (22-29); Chloride 103 mmol/L (96-108); Cholesterol 162 mg/dL (<200); Estimated Glomerular Filt Rate 51; Glucose Fasting 90 mg/dL (60-99); HDL Cholesterol 59 mg/dL (>40); LDL Cholesterol Calculated 89 mg/dL (<100); Potassium 3.8 mmol/L (3.3-5.1); Sodium 138 mmol/L (135-145); Total Protein 7.1 g/dL (6.5-8.0); Triglycerides 71 mg/dL (<150)
== END 2025-04-17 06:21 | disposition home or self-care (01) ==
LOC: HO.HMGCLDS 06:20
PROVIDERS: Visit Provider Internal Medicine
DX: E11.9 Type 2 diabetes mellitus without complications (principal); E78.5 Hyperlipidemia, unspecified; R53.83 Other fatigue
CPT/HCPCS: 36415; 80053; 80061; 83036; 85025

== ENCOUNTER 2025-05-31 10:15 | Outpatient (REF) | payer MEDICARE, MEDICAID, SELFPAY ==
--- OUTSIDE RECORDS SUMMARY | 2025-05-31 10:45 | XMS_ITS | Patient Health Record ---
Author Organization [facility] Address [address] [place] [address] Care Team Providers Care Nutrition Representative Name Role Phone Carlos Maravilla MD Primary Care Provider Rudi Rodgers Unavailable [phone] Allergies Allergen (clinical drug ingredient) Drug/Non Drug [...] in th e morning Orally Once a day; Duration: 30 day(s) Active Simvastatin 20 MG 1 tablet every eveni ng Orally Once a day; Duration: 30 day(s) Active Sulindac 150 MG 1 tablet with food Orally Twice a day; Duration: 30 day(s) Active Centrum Silver as directed Orally Active NexIUM 40 MG as directed Orally Unknown Cipro 500 MG 1 tablet Orally qd; Duration: 05 days 04/15/2016 Not-Taking Ferrous Sulfate Acti ve Tamoxifen Citrate Ac tive Problems Problem Type SNOMED Code ICD Code Onset Dates Problem Status W/U Status Risk Notes Problem Pain in left foot (M79.672) Active confirmed Plan Of Treatment Pending Test Test Name Order Date [id number] Plate 04/15/2016 Insurance Providers Payer Name Payer Address Payer Phone Subscriber Number Group Number Insured Name Patient Relationship to Insured Coverage Start Date Coverage End Date Medicare National Govt Svcs Inc [address] [place] [id number] Lyric Mirza Self - patient is the insured [facility] [address] [place] [address] [id number] Lyric Mirza Self - patient is the insured Medical (General) History Medical History History ICD Code high blood pressure measles mumps chicken pox Transfusions Joint implants/screws Cholesterol Surgical History Surgery Date(Month/Year) total knee replacement right 04/05/2012 gall bladder 2001 ? bunionectomy 30 yrs ago ? Hospitalization History Reason Date(Month/Year) [facility] [place] bone density 02/2016
--- OUTSIDE RECORDS SUMMARY | 2025-05-31 10:45 | XMS_ITS | Encounter Summary ---
Author Organization [facility] Address [address] [place] [address] Phone Care Team Providers Care Forms Analysis Manager Name Role Phone Carlos Maravilla MD Primary Care Provider [phone] Reason for Visit * Reason Comments Med Refill Encounter Details Date Type Department Care Team (Late st Contact Info) Description 12/01/2020 Refill [facility] [address] [place] [address] Cam Carney MD [address] [facility] [address] [place] [address] Social History Tobacco Use Types [...] on filedocumented in this encounter Care Teams Forms Analysis Manager Relationship Specialty Start Date End Date Carlos Maravilla MD [address] [place] [address] PCP - General 11/04/20 documented as of this encounter
--- OUTSIDE RECORDS SUMMARY | 2025-05-31 10:46 | XMS_ITS | Patient Health Record ---
Author Organization [facility] Address [address] [place] [address] Care Team Providers Care Mangle Tender Name Role Phone Antwan Marrero Jr Reason For Referral No Information Plan Of Treatment No Information
== END 2025-05-31 10:16 | disposition home or self-care (01) ==
LOC: HO.MAMMO 10:15
PROVIDERS: PCP Internal Medicine; Visit Provider Internal Medicine
DX: Z12.31 Encounter for screening mammogram for malignant neoplasm of breast (principal)
CPT/HCPCS: 77063; 77067

== ENCOUNTER → 2025-05-31 10:45 | Outpatient (BNV) | payer MEDICARE, MEDICAID, SELFPAY | PROVIDERS: PCP Internal Medicine; Visit Provider Radiology Body Imaging | DX: Z12.31 Encounter for screening mammogram for malignant neoplasm of breast (principal) | CPT/HCPCS: 77063; 77067 ==

== ENCOUNTER 2025-06-26 09:52 | Outpatient (AMB) | payer MEDICARE, MEDICAID, SELFPAY ==
--- NOTE | 2025-06-26 09:58 | A.OFFPC_ITS ---
Vital Signs 06/26/25 10:00 Height 5 ft 4.96 in Weight 165 lb BMI 27.5 BP 140/82 H Respiration 14 Pulse 88 Pulse Source Pulse Oximeter Temp 98.2 F Temp Source Temporal Artery Scan Pulse Oximetry (%) 99 Oxygen Delivery Method Room Air Intake Visit Reasons: Establish Care Dr. Pisano patient Critical Care Nurse Required: No Accompanied by: Self / Same As Patient Allergies sulindac (From CLINORIL) Allergy (Intermediate, Verified 06/26/25 09:58) Hives cephalexin (From KEFLEX) Adverse Reaction (Intermediate, Verified 06/26/25 09:58) HIVES clindamycin (CLINDAMYCIN) Adverse Reaction (Intermediate, Verified 06/26/25 09:58) Hives Tobacco use date assessed: 06/26/25 Fall risk assessment: No Falls in past year Last assessed Fall Risk: 06/26/25 Dental Screening Dental Screen Date: 06/26/25 Did you have a dental visit in the last 12 months?: Yes Did you have a dental problem in the last 6 months where you did not have access to dental care?: No Was dental information given to patient?: Patient has dentist [facility] Medical History HX: breast cancer Elevated cholesterol HTN (hypertension) Anxiety Surgical History Hx of right cataract extraction Hx of colonoscopy (~03/14/10) Hx of total hip arthroplasty Hx of total knee arthroplasty Family History (Updated 06/26/25 @ 09:59 by JEANNE Montgomery) Father No problems noted. Mother No problems noted. 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 1. Little interest or pleasure in doing things: not at all 2. Feeling down, depressed, or hopeless: not at all 3. Trouble falling or staying asleep, or sleeping too much: not at all 4. Feeling tired or having little energy: not at all 5. Poor appetite or overeating: not at all 6. Feeling bad about yourself - or that you are a failure or have let yourself or your family down: not at all 7. Trouble concentrating on things, such as reading the newspaper or watching television: not at all 8. Moving or speaking so slowly that other people could have noticed. Or the opposite - being so fidgety or restless that you have been moving around a lot more than usual: not at all 9. Thoughts that you would be better off or of hurting yourself in some way: not at all Total score: 0 Source: Developed by Drs. Farooq Mosqueda, Lashae Mondragon, Perry Vargas and colleagues, with an educational danisha from [employer]. Thrive Questionnaire Date Thrive assessed: 06/26/25 I am a: Patient What is your living situation today?: I have a steady place to live Within the past 12 months, did the food you bought not last and you didn't have the money to get more?: Never true Within the past 12 months, did you worry whether your food would run out before you got money to buy more?: Never true Do you have trouble paying for medicines?: No Do you have trouble getting transportation to medical appointments?: No Do you have trouble paying your heating and electricity bill?: No Do you have trouble taking care of your child, family member or friend?: No Do you have trouble with day-to-day activities such as bathing, preparing meals, shopping, managing finances, etc.?: No Are you currently unemployed and looking for a job?: No Are you interested in more education?: No Please select the resources that you would like help with: None THRIVE Score: 0 AUDIT C Alcohol Use Questionnaire (AUDIT-C) 1. How often do you have a drink containing alcohol?: Monthly or less 2. How many drinks containing alcohol do you have on a typical day when you are drinking?: 1 or 2 3. How often do you have six or more drinks on one occasion?: Never Total Score: 1 CHERYLE-7 AMB Questionnaire CHERYLE-7 Date CHERYLE - 7 assessed: 06/26/25 Feeling nervous, anxious, or on edge: 0 = Not at all Not being able to stop or control worryin = Not at all Worrying too much about different things: 0 = Not at all Trouble relaxin = Not at all Being so restless that it is hard to sit still: 0 = Not at all Becoming easily annoyed or irritable: 0 = Not at all Feeling afraid as if something awful might happen: 0 = Not at all Total CHERYLE-7 score (0-4 normal; 5-9 mild; 10-14 moderate; 15-21 severe): 0 Source: Developed by Drs. Farooq Mosqueda, Lashae Mondragon, Perry Vargas and colleagues, with an educational danisha from [employer]. Physical exam (Primary Care) Vital Signs: Last Vital Signs Temp 98.2 F 06/26/25 10:00 Pulse 88 06/26/25 10:00 Resp 14 06/26/25 10:00 BP 140/82 H 06/26/25 10:00 Pulse Ox 99 06/26/25 10:00 Oxygen Delivery Method Room Air 06/26/25 10:00 BMI result Body Mass Index 27.5 Tobacco/Smoking Status: Tobacco use Status Tobacco use date assessed 06/26/25 06/26/25 10:06 Patient Tobacco Use Status Never used Tobacco 06/26/25 10:06 PHQ-9: PHQ-9 Score PHQ-9: Total score 0 06/26/25 10:06 Thrive Assessment: Date of Thrive Assessment Date Thrive assessed 06/26/25 06/26/25 10:06 Coding Level of Care Code New Pt Level 4 (24926) Complex EM visit Add On G2211 Diagnoses HTN (hypertension) I10 Breast cancer C50.919 Assessment & Plan Assessment & Plan (1) HTN (hypertension): Code(s): I10 - Essential (primary) hypertension Category: Medical Plan: BP is stable. Continue current medications (2) Breast cancer: Code(s): C50.919 - Malignant neoplasm of unspecified site of unspecified female breast Category: Medical Plan: Condition is stable. Plan History of Present Illness - The patient is an 79-year-old female presenting for a wellness visit and evaluation of intermittent muscular pain and neck pain. - Muscular pain: Reports pain in calf, upper arm, and stomach muscles every five to six weeks, lasting for seven to eight days before resolving. - Neck pain: Describes intermittent pain starting in the neck and traveling downward, occurring sporadically over the past five to six months. - Arthritis: Neck pain may be due to arthritis, though not persistent. - Skin lesion: Non-cancerous blemish on the nose present for two years, unresponsive to decolorized iodine. - Preventative care: Advised to receive influenza and COVID-19 vaccinations available at local pharmacies. 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 - Living situation: Lives alone in a three-room apartment, performs own cooking and household tasks. - Daily activities: Visits a halfway daily to assist a friend with breakfast. 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 Review of Systems - Musculoskeletal: Reports intermittent muscular pain in calf, upper arm, and stomach muscles. Denies morning stiffness. - Neurological: Reports intermittent neck pain. Denies persistent tingling or numbness. - Dermatological: Reports a persistent blemish on the nose for two years. - General: Reports waking up at night to urinate, despite limited fluid intake after lunch. Physical Exam General: Cooperative and healthy appearing Nutritional Appearance: Well nourished Orientation/consciousness: Patient oriented x3 Limitations: No limitations Head: Normal to inspection General: Appearance normal, both eyes and all related structures Neck: Normal visual inspection Chest: Normal palpation of entire chest wall Respiratory: N ormal respiratory effort Neurology: Patient oriented x3, very little tingling in the neck, muscle aches are muscular and not arthritis. Results Plan 1. Muscular Pain - The muscular pain is considered non-arthritic and not a cause for concern at this time. 2. Neck Pain - Neck pain is suspected to be due to mild arthritis, and an x-ray is planned to confirm the diagnosis. 3. Skin Lesion On Nose - The skin lesion on the nose is non-cancerous and does not require further intervention at this time. 4. Preventative Care: Vaccinations For Influenza And Covid-19 - The patient is advised to receive influenza and COVID-19 vaccinations, available at local pharmacies. Discussion Notes I discussed with the patient that her muscular pain is not related to arthritis and is not concerning. We will perform an x-ray to assess the neck pain, which is likely due to mild arthritis. The blemish on her nose is non-cancerous and does not require further treatment. I recommended she receive her influenza and COVID-19 vaccinations at a local pharmacy. We will follow up in six months to reassess her condition and ensure her preventative care is up to date. Patient Instructions - Schedule an x-ray for neck pain assessment. - Receive influenza and COVID-19 vaccinations at a local pharmacy. - Follow up in six months for reassessment and preventative care updates. Orders: Orders Complete Blood Count no Diff Today C50.919 - Malignant neoplasm of unspecified site of unspecified female breast, I10 - Essential (primary) hypertension UA and rflx microscopic Today C50.919 - Malignant neoplasm of unspecified site of unspecified female breast, I10 - Essential (primary) hypertension Basic Metabolic Panel Today C50.919 - Malignant neoplasm of unspecified site of unspecified female breast, I10 - Essential (primary) hypertension Lipid Panel Today C50.919 - Malignant neoplasm of unspecified site of unspecified female breast, I10 - Essential (primary) hypertension Liver Panel Today C50.919 - Malignant neoplasm of unspecified site of unspecified female breast, I10 - Essential (primary) hypertension Thyroid Stimulating Hormone Today C50.919 - Malignant neoplasm of unspecified site of unspecified female breast, I10 - Essential (primary) hypertension Medications: Changed From valsartan 1 tab PO DAILY To valsartan 80 mg PO DAILY 90 tabs 1RF From simvastatin 1 tab PO DAILY To simvastatin 20 mg PO DAILY 90 tabs 1RF
[2025-06-26 10:00] VITALS: BP 140/82; PULSE 88; RESP 14; TEMP 36.8; O2SAT 99; BMI 27.5
--- OUTSIDE RECORDS SUMMARY | 2025-06-26 11:06 | XMS_ITS | Patient Health Record ---
Author Organization [facility] Address [address] [place] [address] Care Team Providers Care Lost And Found Clerk Name Role Phone Antwan Marrero Jr Reason For Referral No Information Plan Of Treatment No Information
--- OUTSIDE RECORDS SUMMARY | 2025-06-26 11:06 | XMS_ITS | Clinical Summary ---
Author Organization [facility] Address [address] [place] [address] Care Team Providers Care Finger Buffs Assembler Name Role Phone Carlos Maravilla MD Primary Care Provider Allergies Active Allergy Reactions Criticality Noted Date [...] 3 04/07/2021 Hypertensive renal disease 04/07/2021 Immunizations Immunization Administration Dates Next Due PPD Test 04/18/2015 [...] Due Date Last Done Comments Pneumococcal Vaccine: 50+ Ye ars (1 of 2 - PCV) 1964 Influenza Vaccine (#1) 2025 Hepatitis B Vaccine Aged Out No longe r eligible based on patient's age to complete this topic Insurance Medicaid [place] Medicare Medicaid [place] Medicare Care Teams Finger Buffs Assembler Relationship Specialty Start Date End Date Carlos Maravilla MD [address] [place] [address] PCP - General 11/04/20
--- OUTSIDE RECORDS SUMMARY | 2025-06-26 11:06 | XMS_ITS | Encounter Summary ---
Author Organization [facility] Address [address] [facility] [address] [place] [address] Phone Care Team Providers Care Technical Support Intern Name Role Phone Carlos Maravilla MD Primary Care Provider [phone] Reason for Visit * Reason Comments Med Refill Encounter Details Date Type Department Care Team (Late st Contact Info) Description 12/04/2020 Refill [facility] [address] [facility] [address] [place] [address] Cam Carney MD [address] [facility] [address] [place] [address] Social History Tobacco Use Types [...] on filedocumented in this encounter Care Teams Technical Support Intern Relationship Specialty Start Date End Date Carlos Maravilla MD [address] [place] [address] PCP - General 11/04/20 documented as of this encounter
--- OUTSIDE RECORDS SUMMARY | 2025-06-26 11:06 | XMS_ITS | Encounter Summary ---
Author Organization [facility] Address [address] [place] [address] Phone Care Team Providers Care Entertainment Musician Name Role Phone Carlos Maravilla MD Primary Care Provider [phone] Reason for Visit * Reason Comments Med Refill Encounter Details Date Type Department Care Team (Late st Contact Info) Description 12/01/2020 Refill [facility] [address] [place] [address] Cam Carney MD [address] [facility] [address] [place] [address] Social History Tobacco Use Types [...] on filedocumented in this encounter Care Teams Entertainment Musician Relationship Specialty Start Date End Date Carlos Maravilla MD [address] [place] [address] PCP - General 11/04/20 documented as of this encounter
--- OUTSIDE RECORDS SUMMARY | 2025-06-26 11:06 | XMS_ITS | Patient Health Record ---
Author [facility] Address [address] [facility] [place] [address] Care Team Providers Care Care Management Assistant Name Role Phone Carlos Maravilla MD Primary Care Provider Rudi Rodgers Unavailable [phone] Allergies Allergen (clinical drug ingredient) Drug/Non Drug [...] Risk Notes Problem Pain in left foot ([id number]) Pain in left foot (M79.672) Active confirmed Plan Of Treatment Pending Test Test Name Order Date [id number] Plate 04/15/2016 Insurance Providers Payer Name Payer Address Payer Phone Subscriber Number Group Number Insured Name Patient Relationship to Insured Coverage Start Date Coverage End Date Medicare National Govt Svcs Inc [address] [place] [id number] Lyric Mirza Self - patient is the insured [employer] [address] [place] [address] [id number] Lyric Mirza Self - patient is the insured Medical (General) History Medical History History ICD Code high blood pressure measles mumps chicken pox Transfusions Joint implants/screws Cholesterol Surgical History Surgery Date(Month/Year) total knee replacement right 04/05/2012 gall bladder 2001 ? bunionectomy 30 yrs ago ? Hospitalization History Reason Date(Month/Year) [facility] [place]/2016
== END 2025-06-26 10:32 | disposition home or self-care (01) ==
LOC: HO.HMCSH 09:52
PROVIDERS: PCP Internal Medicine; Visit Provider Internal Medicine
DX: I10 Essential (primary) hypertension (principal); C50.919 Malignant neoplasm of unspecified site of unspecified female breast

== ENCOUNTER → 2025-06-26 09:52 | Outpatient (BNVA) | payer MEDICARE, MEDICAID, SELFPAY | PROVIDERS: PCP Internal Medicine; Visit Provider Internal Medicine | DX: I10 Essential (primary) hypertension (principal); M54.2 Cervicalgia; Z85.3 Personal history of malignant neoplasm of breast | CPT/HCPCS: 96127; 99202 ==